=== PATIENT | female | born 1955 | race Caucasian/White ===

== ENCOUNTER 2017-12-10 19:15 | Emergency (ER) | payer BC ==
--- NOTE | 2017-12-10 20:13 | UC ---
Syncope/New Syncope HPI - HPI Summary HPI Summary: Patient arrives reporting 2 syncopal episodes that occurred this evening. States she was sitting eating dinner and feeling well when she went to answer the door. She suddenly felt very warm and was reportedly pale and passed out. She was assisted back to her kitchen and was standing up leaning against the stove when she suddenly passed out again. She states she hit her head on the stove and must have landed on her right knee because she has severe right knee pain. She does have a history of 3 previous knee surgeries. Of note she had blood work done around noon today but has eaten and been doing well since then until the syncopal episodes around 7 PM. Has no history of previous syncopal episodes. Admits she does not drink much water but drinks iced tea throughout the day. Denies any significant medical history. Currently has a slight headache and right knee pain but otherwise feels well. - History Of Current Complaint Chief Complaint: UCDizziness Stated Complaint: FAINTING SPELLS X2 Time Seen by Provider: 12/10/17 19:25 Hx Obtained From: Patient, Family/Batch Plant Operator - SISTER Onset/Duration: Sudden Onset Activity At Onset: At Rest Frequency: Episodes x___ - 2 Associated Head Trauma: Yes Pain Intensity: 2 Pain Scale Used: 0-10 Numeric Aggravating Factor(s): Nothing Associated Signs And Symptoms: Positive: Headache. Negative: AMS, Chest Pain, Dizzy, Head Trauma (Remote), Head Trauma (Recent), Palpitations, Seizure, Shortness Of Breath, Vomiting - Allergies/Home Medications Allergies/Adverse Reactions: Allergies Allergy/AdvReac Type Severity Reaction Status Date / Time MS Hydrocodone [Hydrocodone] Allergy Vomiting Verified 12/10/17 19:22 MS Penicillins [Penicillins] Allergy Hives Verified 12/10/17 19:22 Home Medications: Home Medications Digestive 8/L.acidoph/Pectin [Digestive Enzymes Tablet] 1 tab PO 12/10/17 [ History] Meloxicam 7.5 mg PO DAILY 12/10/17 [History Confirmed 12/10/17] SUMAtriptan TAB* [Imitrex TAB*] 25 mg PO SEE INSTRUCTIONS PRN 12/10/17 [History Confirmed 12/10/17] PMH/Surg Hx/FS Hx/Imm Hx Previously Healthy: Yes - Surgical History Surgical History: Yes Surgery Procedure, Year, and Place: right knee surgery. nodules removed from vocal cords. heel spur - Family History Known Family History: Positive: Hypertension - Social History Alcohol Use: None Substance Use Type: None Smoking Status (MU): Never Smoked Tobacco - Immunization History Most Recent Influenza Vaccination: 2014 Hx Tetanus, Diphtheria Vaccination: Yes Review of Systems Constitutional: Negative Respiratory: Negative Cardiovascular: Negative Gastrointestinal: Negative Genitourinary: Negative Musculoskeletal: Arthralgia Neurological: Headache All Other Systems Reviewed And Are Negative: Yes Physical Exam Triage Information Reviewed: Yes Appearance: Well-Appearing, No Pain Distress, Well-Nourished Vital Signs: Initial Vital Signs Temp 97.8 F 12/10/17 19:24 Pulse 69 12/10/17 19:24 Resp 18 12/10/17 19:24 BP 117/67 12/10/17 19:24 Pulse Ox 100 12/10/17 19:24 Vital Signs Reviewed: Yes Eyes: Positive: Conjunctiva Clear, Other: - PERRL, EOMI ENT: Positive: Hearing grossly normal, Pharynx normal, TMs normal Neck: Positive: Supple, Nontender, No Lymphadenopathy Respiratory Exam: Normal Cardiovascular Exam: Normal Abdomen Description: Positive: Nontender, Soft. Negative: CVA Tenderness (R), CVA Tenderness (L) Bowel Sounds: Positive: Present Musculoskeletal: Positive: ROM Limited @ - RIGHT KNEE, Edema @ - RIGHT KNEE, Other: - TTP RIGHT KNEE Neurological: Positive: Alert, Other: - CN II-XII GROSSLY INTACT BILATERALLY. RAPID ALTERNATING MOVEMENTS INTACT. NEG PRONATOR DRIFT. 5/5 STRENGTH. HEEL TO LUNA INTACT BILATERALLY. FINGER TO NOSE INTACT. Psychological: Positive: Age Appropriate Behavior Skin: Negative: rashes Diagnostics - EKG Cardiac Rate: NL - 66BPM Cardiac Rhythm: Sinus: Normal Ectopy: None ST Segment: Normal Syncope Course/Dx - Course Course Of Treatment: EKG UNREMARKABLE. ORTHOSTATIC VITAL SIGNS UNREMARKABLE. NEURO EXAM GROSSLY NORMAL. RECOMMEND TRANSFER TO ED FOR FURTHER EVALUATION. PT OFFERED TRANSPORT TO THE ED BY AMBULANCE BUT DECLINES. ADVISED THAT BY NOT TRAVELING IN A MONITORED SETTING SHE COULD BE RISKING WORSENING OF HER CONDITION THAT COULD POSE A THREAT TO HER LIFE, HEALTH AND MEDICAL SAFETY. SHE VERBALIZES UNDERSTANDING AND CONTINUES TO DECLINE AMBULANCE TRANSFER. - Differential Dx/Diagnosis Provider Diagnoses: SYNCOPE - Physician Notification/Consults Discussed Patient Care With: Pernell Doss MD - TO [facility] ED BY PRIVATE CAR Time Discussed With Above Provider: 20:05 Instructed by Provider To: MD Will See In ED Discharge - Sign-Out/Discharge Documenting (check all that apply): Patient Departure All imaging exams completed and their final reports reviewed: No Studies - Discharge Plan Condition: Stable Disposition: HOME Patient Education Materials: Syncope (ED) Referrals: Ashley Coy PA [Primary Care Provider] - If Needed Additional Instructions: GO DIRECTLY TO THE [facility] ED FROM HERE FOR FURTHER EVALUATION. YOU HAVE DECLINED TRANSFER TO THE ED BY AMBULANCE. BE ADVISED THAT BY NOT TRAVELING IN A MONITORED SETTING YOU COULD BE RISKING WORSENING OF YOUR CONDITION THAT COULD POSE A THREAT TO YOUR LIFE, HEALTH AND MEDICAL SAFETY. - Billing Disposition and Condition Condition: STABLE Disposition: Home
[2017-12-10 20:27] VITALS: BP 120/76
== END 2017-12-10 20:27 | disposition home or self-care (01) ==
LOC: UCCORT 19:15
DX: R55 Syncope and collapse (principal); Z88.0 Allergy status to penicillin; Z88.6 Allergy status to analgesic agent
CPT/HCPCS: 93005; 99212; G0463

== ENCOUNTER → 2017-12-10 21:16 | Emergency (ER) | payer BC ==
[2017-12-10 22:28] LABS: ABS Basophils 0.1 10^3/ul (0-0.2); ABS Eosinophils 0.1 10^3/ul (0-0.6); ABS Lymphocytes 0.9 10^3/ul (1.0-4.8); ABS Monocytes 0.6 10^3/ul (0-0.8); ABS Neutrophils 7.4 10^3/ul (1.5-7.7); ABS Nucleated RBC 0 10^3/ul; Eosinophil % 1.2 % (0-6); Hematocrit 40 % (35-47); Hemoglobin 13.5 g/dl (12.0-16.0); Lymphocyte % 9.8 % (25-47); Mean Corpuscular HGB Conc 34 g/dl (31-36); Mean Corpuscular Hemoglobin 31 pg (27-31); Mean Corpuscular Volume 91 fL (80-97); Mean Platelet Volume 8.6 um3 (7.4-10.4); Nucleated Red Blood Cells % 0; Platelet Count 242 10^3/ul (150-450); Red Blood Count 4.37 10^6/ul (4.00-5.40); Red Cell Distribution Width 13 % (10.5-15); White Blood Count 9.1 10^3/ul (3.5-10.8)
--- NOTE | 2017-12-11 00:42 | ED ---
Syncope/Near Syncope - HPI Summary HPI Summary: Pt is a 62 year old female presenting to the ED with a chief complaint of syncope. She was eating dinner in her living room, she spoke to her neighbor for 2-3 minutes at the door when the pt got very hot, but kept conversing, everything went dark, then passed out. It was not hot out and she was in her living room with a bathrobe on. Pt reports passing out again a little bit later , after about 5 seconds of rest and some ice on her neck. Upon standing up, she felt mildly weak, then while she stood at her stove she passed out again. According to a neighbor, she hit her head on the stove. She complains of knee pain, thinks that she has dislodged her knee replacement. Pt had a normal day, ran errands, washed her truck, got bloodwork done. Did not eat breakfast today because she didnt know if the bloodwork was a fasting blood draw. No nausea after first fall, just mildly confused because fall was unexpected. No trouble breathing, no cp, no current n/v. The pt does not drink lots of fluids. The pt s R knee pain is rated at a 8/9 out of 10. The pt has a hx of arthritis, knee replacements, and basal cell removal. The pt denies any respiratory or heart problems, as well as any smoking or drinking. - History Of Current Complaint Chief Complaint: EDSyncope Hx Obtained From: Patient Onset/Duration: Sudden Onset Timing: Intermittent Episode Lasting - minutes Context: Witnessed Activity At Onset: Other - standing and talking to neighbor Associated Head Trauma: No Associated Signs And Symptoms: Decreased Oral Intake - minimal food and drink - Allergies/Home Medications Allergies/Adverse Reactions: Allergies Allergy/AdvReac Type Severity Reaction Status Date / Time hydrocodone Allergy Vomiting Verified 12/10/17 21:24 Penicillins Allergy Hives Verified 12/10/17 21:24 PMH/Surg Hx/FS Hx/Imm Hx Previously Healthy: Yes Cardiovascular History: Denies: Hx Hypertension, Other Cardiovascular Problems/Disorders Respiratory History: Denies: Hx Lung Cancer, Other Respiratory Problems/Disorders Musculoskeletal History: Reports: Hx Arthritis - Surgical History Surgery Procedure, Year, and Place: right knee surgery. nodules removed from vocal cords. heel spur Infectious Disease History: No Infectious Disease History: Denies: Traveled Outside the [place] in Last 30 Days - Family History Known Family History: Positive: None, Hypertension - Social History Alcohol Use: None Substance Use Type: Reports: None Smoking Status (MU): Never Smoked Tobacco Review of Systems Negative: Fever Negative: Chest Pain Negative: Shortness Of Breath Negative: Vomiting, Nausea Positive: Myalgia - R knee pain Positive: Other - confusion upon waking up All Other Systems Reviewed And Are Negative: Yes Physical Exam - Summary Physical Exam Summary: Appearance: Well-appearing, Well-nourished, lying in bed comfortable Skin: Warm, dry, no obvious rash Eyes: sclera anicteric, no conjunctival pallor ENT: mucous membranes moist Neck: deferred Respiratory: No signs of respiratory distress Cardiovascular: Appears well perfused, pulses are nml Abdomen: deferred Musculoskeletal: R knee effusion, no signs of head trauma. Neurological: Awake and alert, mentation is normal, speech is fluent and appropriate Psychiatric: affect is normal, does not appear anxious or depressed Triage Information Reviewed: Yes Vital Signs On Initial Exam: Initial Vitals Temp Pulse Resp BP Pulse Ox 97.8 F 73 18 100/63 100 12/10/17 21:20 12/10/17 21:20 12/10/17 21:20 12/10/17 21:20 12/10/17 21:20 Vital Signs Reviewed: Yes Diagnostics - Vital Signs Vital Signs Temp Pulse Resp BP Pulse Ox 12/10/17 23:23 97.9 F 69 18 104/73 99 12/10/17 21:20 97.8 F 73 18 100/63 100 - Laboratory Lab Results: Lab Results 12/10/17 12/10/17 12/10/17 Range/Units 22:19 22:19 22:19 WBC 9.1 (3.5-10.8) 10^3/ul RBC 4.37 (4.00-5.40) 10^6/ul Hgb 13.5 (12.0-16.0) g/dl Hct 40 (35-47) % MCV 91 (80-97) fL MCH 31 (27-31) pg MCHC 34 (31-36) g/dl RDW 13 (10.5-15) % Plt Count 242 (150-450) 10^3/ul MPV 8.6 (7.4-10.4) um3 Neut % (Auto) 81.4 (38-83) % Lymph % (Auto) 9.8 L (25-47) % [place] % (Auto) 6.7 (0-7) % Eos % (Auto) 1.2 (0-6) % Baso % (Auto) 0.9 (0-2) % Absolute Neuts (auto) 7.4 (1.5-7.7) 10^3/ul Absolute Lymphs (auto) 0.9 L (1.0-4.8) 10^3/ul Absolute Monos (auto) 0.6 (0-0.8) 10^3/ul Absolute Eos (auto) 0.1 (0-0.6) 10^3/ul Absolute Basos (auto) 0.1 (0-0.2) 10^3/ul Absolute Nucleated RBC 0 10^3/ul Nucleated RBC % 0 APTT 28.6 (26.0-36.3) seconds Sodium 141 (135-145) mmol/L Potassium 4.9 (3.5-5.0) mmol/L Chloride 106 (101-111) mmol/L Carbon Dioxide 31 (22-32) mmol/L Anion Gap 4 (2-11) mmol/L BUN 19 (6-24) mg/dL Creatinine 0.97 H (0.51-0.95) mg/dL Est GFR ( Amer) 70.2 (>60) Est GFR (Non-Af Amer) 58.0 (>60) BUN/Creatinine Ratio 19.6 (8-20) Glucose 115 H (70-100) mg/dL Lactic Acid (0.5-2.0) mmol/L Calcium 9.6 (8.6-10.3) mg/dL Magnesium 2.3 (1.9-2.7) mg/dL Total Bilirubin 0.40 (0.2-1.0) mg/dL AST 29 (13-39) U/L ALT 19 (7-52) U/L Alkaline Phosphatase 66 (34-104) U/L Troponin I 0.00 (<0.04) ng/mL B-Natriuretic Peptide ( - 100) pg/mL Total Protein 7.3 (6.4-8.9) g/dL Albumin 4.5 (3.2-5.2) g/dL Globulin 2.8 (2-4) g/dL Albumin/Globulin Ratio 1.6 (1-3) TSH 6.98 H (0.34-5.60) mcIU/mL 12/10/17 12/10/17 Range/Units 22:19 22:19 WBC (3.5-10.8) 10^3/ul RBC (4.00-5.40) 10^6/ul Hgb (12.0-16.0) g/dl Hct (35-47) % MCV (80-97) fL MCH (27-31) pg MCHC (31-36) g/dl RDW (10.5-15) % Plt Count (150-450) 10^3/ul MPV (7.4-10.4) um3 Neut % (Auto) (38-83) % Lymph % (Auto) (25-47) % [place] % (Auto) (0-7) % Eos % (Auto) (0-6) % Baso % (Auto) (0-2) % Absolute Neuts (auto) (1.5-7.7) 10^3/ul Absolute Lymphs (auto) (1.0-4.8) 10^3/ul Absolute Monos (auto) (0-0.8) 10^3/ul Absolute Eos (auto) (0-0.6) 10^3/ul Absolute Basos (auto) (0-0.2) 10^3/ul Absolute Nucleated RBC 10^3/ul Nucleated RBC % APTT (26.0-36.3) seconds Sodium (135-145) mmol/L Potassium (3.5-5.0) mmol/L Chloride (101-111) mmol/L Carbon Dioxide (22-32) mmol/L Anion Gap (2-11) mmol/L BUN (6-24) mg/dL Creatinine (0.51-0.95) mg/dL Est GFR ( Amer) (>60) Est GFR (Non-Af Amer) (>60) BUN/Creatinine Ratio (8-20) Glucose (70-100) mg/dL Lactic Acid 1.4 (0.5-2.0) mmol/L Calcium (8.6-10.3) mg/dL Magnesium (1.9-2.7) mg/dL Total Bilirubin (0.2-1.0) mg/dL AST (13-39) U/L ALT (7-52) U/L Alkaline Phosphatase (34-104) U/L Troponin I (<0.04) ng/mL B-Natriuretic Peptide 30 ( - 100) pg/mL Total Protein (6.4-8.9) g/dL Albumin (3.2-5.2) g/dL Globulin (2-4) g/dL Albumin/Globulin Ratio (1-3) TSH (0.34-5.60) mcIU/mL Result Diagrams: 12/10/17 22:19 12/10/17 22:19 Lab Statement: Any lab studies that have been ordered have been reviewed, and results considered in the medical decision making process. - EKG 2220 Cardiac Rate: NL - 68 EKG Rhythm: Sinus Rhythm ST Segment: Normal Ectopy: None EKG Interpretation: This is a normal EKG. Course/Dx - Diagnoses Provider Diagnoses: Syncope Discharge - Discharge Plan Condition: Good Disposition: HOME Patient Education Materials: Syncope (ED) Referrals: Ashley Coy PA [Primary Care Provider] - 3 Days Additional Instructions: Return to the ED with any new or worsening symptoms. - Attestation Statements Document Initiated by Scribe: Yes Documenting Scribe: Yuliana Linares Provider For Whom Scribe is Documenting (Include Credential): Dwight Villatoro MD. Scribe Attestation: Yuliana Kraus, scribed for Dwight Villatoro MD. on 12/11/17 at 0629.
[2017-12-11 00:51] VITALS: BP 114/68
--- NOTE | 2017-12-11 07:45 | RAD ---
HISTORY: pain s/p injury COMPARISONS: None VIEWS: 4 , Frontal, lateral, axial, and oblique views of the right knee FINDINGS: BONE DENSITY: Normal. BONES: The patient is status post right knee arthroplasty. There is no hardware failure or osteolysis. JOINTS: The patient is status post right knee arthroplasty. ALIGNMENT: There is no dislocation. SOFT TISSUES: Unremarkable. OTHER FINDINGS: None. IMPRESSION: STATUS POST RIGHT KNEE ARTHROPLASTY. NO ACUTE OSSEOUS INJURY. IF SYMPTOMS PERSIST, RECOMMEND REPEAT IMAGING R0
--- NOTE | 2017-12-11 07:47 | RAD ---
HISTORY: syncope COMPARISONS: November 01, 2014 VIEWS: 4: Frontal dual-energy and lateral views of the chest. FINDINGS: CARDIOMEDIASTINAL SILHOUETTE: The cardiomediastinal silhouette is normal. YEIMY: The yeimy are normal. PLEURA: The costophrenic angles are sharp. No pleural abnormalities are noted. LUNG PARENCHYMA: There is hyperinflation with flattening of the diaphragm and expansion of the AP diameter of the chest. ABDOMEN: The upper abdomen is clear. There is no subphrenic gas. BONES AND SOFT TISSUES: There is postsurgical change to right shoulder. OTHER: None. IMPRESSION: HYPERINFLATION, CONSISTENT WITH COPD. NO ACTIVE CARDIOPULMONARY DISEASE. R2
== END | disposition home or self-care (01) ==
LOC: ED 21:16
DX: R55 Syncope and collapse (principal)
CPT/HCPCS: 36415; 71046; 80053; 83605; 83735; 83880; 84443; 84484; 85025; 85730; 93005; 99282

== ENCOUNTER 2018-04-08 07:03 | Emergency (ER) | payer BC ==
--- OUTSIDE RECORDS SUMMARY | 2018-04-08 07:11 | XMS REPORT | Continuity of Care Document ---
:1955 External Reference #:[id number] Author Name Ashley Coy PA Address [address] [place] [address] Care Team Providers Name Role Phone Ashley Coy PA Primary Care Physician Unavailable Payers Type Date Identification Numbers Payment Provider Subscriber Effective: Policy Number: [id number] / [facility]- Ppo Javed Lopez 2011 PayID: [id number] [address] [address] [place] [address] Advance Directives Description No Information Available Problems Date Description Provider Status Onset: 06/25/2011 Backache Gabriela Pineda FNP Active Onset: 06/25/2011 Osteoarthritis Gabriela Pineda FNP Active Onset: 06/25/2011 Gastroesophageal reflux disease Gabriela Pineda FNP Active Onset: 12/31/2017 Hypothyroidism Ashley Coy PA Active Onset: 12/31/2017 Postconcussion syndrome Ashley Coy PA Active Family History Date Family Member(s) Problem(s) Comments General Non-Hodgkin's Lymphoma General Arthritis General Asthma General Breast Cancer General Depression General Hypertension General Osteoporosis General Osteoarthritis General Atrial Fibrillation General Headache, Chronic General Migraine General Cancer Mother Anxiety Onset: (2006) Mother Arthritis Onset: (2008) Mother Kidney Disease Onset: (2006) Mother Osteoporosis Onset: (2008) Mother Stroke Onset: (2006) Mother Osteoarthritis Onset: (2008) Mother Atrial Fibrillation Onset: (2004) First Brother Anxiety Onset: (2004) First Brother Depression Social History Type Date Description Comments Sex Unknown Marital Status Legal Status: Never Lives With Alone 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 Hand Dominance Right-Handed Tobacco Use Reviewed: 11/07/15 Patient has never smoked Smoking Status Reviewed: 12/31/17 Patient has never smoked Allergies, Adverse Reactions, Alerts Date Description Reaction Status Severity Comments 06/25/2011 Penicillin severe hives Active Medications Medication Date Status Form Strength Qnty SIG Indications Ordering Provider Synthroid Active Tablets 25mcg 30tabs 1 by E03.9 Cristóbal 018 mouth Ponce every day sEdel Imitrex Active Tablets 100mg 9tabs 1/2-1 tab Cristóbal 012 by mouth Ponce at onset Edel beckman of [place] as needed Ranitidine 0 Active Tablets 150mg Unknown HCL 000 Naproxen Active Tablets 500mg Unknown 000 Meloxicam Hx Tablets 15mg 30tabs 1 by M79.671 Cristóbal 018 - mouth Ponce every day Edel beckman 018 with food Omeprazole Hx Capsules DR 20mg 30caps 1 by K21.9 Cristóbal 016 - mouth Ponce every day Edel beckman 016 Ranitidine Hx Tablets 150mg 60tabs one pill K21.9 Cristóbal HCL 016 - twice a Ponce day sEdel 016 Ranitidine Hx Tablets 150mg 60tabs one twice K21.9 Cristóbal HCL 016 - a day Ponce Edel beckman 016 Ranitidine Hx Tablets 300mg 30tabs take one 530.11 Cristóbal HCL 015 - tablet by Ponce mouth at sEdel 015 bedtime Naproxen 0 Hx Tablets 500mg 60tabs one pill Cristóbal 000 - twice a Ponce day with Edel beckman 018 food Immunizations CPT Code Status Date Vaccine Lot # [id number] Given 12/18/2017 Influenza Vac,Quad,Split=>3 Yrs 89158 Given 01/27/2015 Influenza Vac,Quad,Split=>3 Yrs 75820 Given 02/01/2013 Flu Triv Old Code 09746 Given 06/25/2011 Tdap Vaccine over 7 yrs old [id number] Given 06/08/2009 Swine flu administration 81625 Given 05/05/2007 Td- Toxoids Absorbed - Adult 17675 Given Unknown Flu Triv Old Code Vital Signs Date Vital Result Comment 03/23/2018 4:04pm Weight 130.00 lb BP Systolic 110 mmHg BP Diastolic 50 mmHg 12/30/2017 2:30pm Weight 131.00 lb 12/17/2017 1:49pm Weight 130.00 lb BP Systolic 110 mmHg BP Diastolic 50 mmHg 09/25/2017 3:26pm Weight 130.00 lb BP Systolic 110 mmHg BP Diastolic 60 mmHg Height 67 inches 5'7" Body Temperature 98.0 F Respiratory Rate 12 /min BMI (Body Mass Index) 20.4 kg/m2 07/09/2017 3:20pm Weight 131.00 lb 11/14/2016 2:45pm Weight 127.00 lb BP Systolic 118 mmHg BP Diastolic 50 mmHg Height 67 inches 5'7" Heart Rate 64 /min Body Temperature 98.7 F Respiratory Rate 12 /min BMI (Body Mass Index) 19.9 kg/m2 09/24/2016 3:32pm Weight 129.00 lb BP Systolic 118 mmHg BP Diastolic 70 mmHg Height 67 inches 5'7" Body Temperature 97.0 F Respiratory Rate 12 /min BMI (Body Mass Index) 20.2 kg/m2 01/31/2016 3:43pm Weight 130.00 lb 11/07/2015 3:38pm Weight 129.00 lb BP Systolic 108 mmHg BP Diastolic 76 mmHg 08/29/2015 2:06pm Weight 128.00 lb BP Systolic 110 mmHg BP Diastolic 70 mmHg 08/08/2015 3:35pm Weight 128.00 lb BP Systolic 110 mmHg BP Diastolic 70 mmHg Height 67 inches 5'7" Heart Rate 64 /min Body Temperature 98.0 F Respiratory Rate 12 /min BMI (Body Mass Index) 20.0 kg/m2 04/26/2015 2:49pm Weight 127.00 lb BP Systolic 112 mmHg BP Diastolic 67 mmHg 11/01/2014 3:10pm Weight 127.00 lb BP Systolic 108 mmHg BP Diastolic 70 mmHg Height 68 inches 5'8" Heart Rate 51 /min Body Temperature 97.0 F O2 % BldC Oximetry 98 % Respiratory Rate 14 /min BMI (Body Mass Index) 19.3 kg/m2 07/27/2014 10:37am Weight 123.00 lb BP Systolic 100 mmHg BP Diastolic 70 mmHg Height 66.6 inches 5'6.60" Heart Rate 64 /min Body Temperature 98.0 F Respiratory Rate 12 /min BMI (Body Mass Index) 19.5 kg/m2 07/07/2013 3:38pm Weight 130.00 lb BP Systolic 100 mmHg BP Diastolic 80 mmHg Height 63 inches 5'3" Heart Rate 70 /min Body Temperature 98.7 F Respiratory Rate 12 /min BMI (Body Mass Index) 23.0 kg/m2 06/01/2013 3:35pm Weight 130.00 lb BP Systolic 101 mmHg BP Diastolic 80 mmHg Height 63 inches 5'3" Heart Rate 70 /min Body Temperature 98.4 F Respiratory Rate 12 /min BMI (Body Mass Index) 23.0 kg/m2 08/05/2012 3:14pm Weight 131.00 lb BP Systolic 101 mmHg BP Diastolic 80 mmHg 07/01/2012 4:20pm Weight 132.00 lb BP Systolic 110 mmHg BP Diastolic 76 mmHg Height 68 inches 5'8" Heart Rate 60 /min Body Temperature 97.9 F Respiratory Rate 16 /min BMI (Body Mass Index) 20.1 kg/m2 06/25/2011 3:57pm Weight 136.00 lb BP Systolic 110 mmHg BP Diastolic 70 mmHg Height 67 inches 5'7" Heart Rate 86 /min Body Temperature 97.4 F Respiratory Rate 12 /min BMI (Body Mass Index) 21.3 kg/m2 Results Test Date Facility Test Result H/L Range Note Basic Metabolic Panel 02/09/2018 [facility] Glucose 100 mg/dL N 74- 106 0 [phone] BUN 24 mg/dL High 7-18 Creatinine 0.9 mg/dL N 0.6-1.3 Glom Filtration Rate, Estimate >60 mL/min >60 If >60 mL/min >60 2 BUN/Creat 26.6 ratio Sodium 141 mmol/L N 136-145 Potassium 4.3 mmol/L N 3.5-5.1 Chloride 105 mmol/L N 98-107 Carbon Dioxide 29 mmol/L N 21-32 Anion Gap 7 mEq/L Low 8-16 Calcium 9.6 mg/dL N 8.5-10.1 Laboratory 02/09/2018 [facility] Thyroid Stim 2.40 N 0.30-4.20 test finding [phone] Hormone uIU/mL Hemoglobin A1c 02/09/2018 [facility] Glycohemoglobin 5.2 % N 4.2- 6.3 3 (Glyco HGB) [phone] (A1c) eAG 103 mg/dL CBC [facility] [facility] White Blood 9.1 10^3/uL N 3.5-10.8 [phone] Count Red Blood Count 4.37 10^6/uL N 4.00-5.40 Hemoglobin 13.5 g/dL N 12.0-16.0 Hematocrit 40 % N 35-47 Mean Corpuscular Volume 91 fL N 80-97 Mean Corpuscular Hemoglobin 31 pg N 27-31 Mean Corpuscular HGB Conc 34 g/dL N 31-36 Red Cell Distribution Width 13 % N 10.5-15 Platelet Count 242 10^3/uL N 150-450 Mean Platelet Volume 8.6 um3 N 7.4-10.4 Abs Neutrophils 7.4 10^3/uL N 1.5-7.7 Abs Lymphocytes 0.9 10^3/uL Low 1.0-4.8 Abs Monocytes 0.6 10^3/uL N 0-0.8 Abs Eosinophils 0.1 10^3/uL N 0-0.6 Abs Basophils 0.1 10^3/uL N 0-0.2 Abs Nucleated RBC 0 10^3/uL Granulocyte % 81.4 % N 38-83 Lymphocyte % 9.8 % Low 25-47 Monocyte % 6.7 % N 0-7 Eosinophil % 1.2 % N 0-6 Basophil % 0.9 % N 0-2 Nucleated Red Blood Cells % 0 [facility] test [facility] [facility] Activated 28.6 seconds N 26.0-36.3 finding [phone] Partial Thrombo Time Lactic Acid 1.4 mmol/L N 0.5-2.0 4 B Type Natriuretic Peptide 30 pg/mL 5 Comp Metabolic Panel 12/10/[address] [facility] [address] [address] Sodium 141 mmol/L N 135-145 [phone] Chloride 106 mmol/L N 101-111 Co2 Carbon Dioxide 31 mmol/L N 22-32 Glucose 115 mg/dL High 70-100 Blood Urea Nitrogen 19 mg/dL N 6-24 Creatinine 0.97 mg/dL High 0.51-0.95 BUN/Creatinine Ratio 19.6 N 8-20 Calcium 9.6 mg/dL N 8.6-10.3 Total Protein 7.3 g/dL N 6.4-8.9 Albumin 4.5 g/dL N 3.2-5.2 Globulin 2.8 g/dL N 2-4 Albumin/Globulin Ratio 1.6 N 1-3 Total Bilirubin 0.40 mg/dL N 0.2-1.0 Alkaline Phosphatase 66 U/L N 34-104 Alt 19 U/L N 7-52 Egfr Non- 58.0 >60 Egfr 70.2 >60 6 Potassium 4.9 mmol/L N 3.5-5.0 Anion Gap 4 mmol/L N 2-11 Ast 29 U/L N 13-39 Laboratory test 12/10/2017 [facility] Troponin I 0.00 ng/mL <0.04 finding [phone] TSH (Thyroid Stim Horm) 6.98 mcIU/mL High 0.34-5.60 Magnesium 2.3 mg/dL N 1.9-2.7 Basic Metabolic Panel 12/10/2017 [facility] Glucose 85 mg/dL N 74- 106 7 [phone] BUN 15 mg/dL N 7-18 Creatinine 0.8 mg/dL N 0.6-1.3 Glom Filtration Rate, Estimate >60 mL/min >60 If >60 mL/min >60 8 BUN/Creat 18.7 ratio Sodium 140 mmol/L N 136-145 Potassium 4.4 mmol/L N 3.5-5.1 Chloride 104 mmol/L N 98-107 Carbon Dioxide 31 mmol/L N 21-32 Anion Gap 5 mEq/L Low 8-16 Calcium 9.3 mg/dL N 8.5-10.1 CBC Auto Diff 12/10/2017 [facility] White Blood Count 4.2 K/uL N 3.1-10.7 [phone] Red Blood Count 4.58 M/uL N 3.90-5.40 Hemoglobin 14.1 gm/dL N 11.6-15.8 Hematocrit 42.2 % N 36.0-46.1 Mean Cell Volume 92.1 fl N 80.9-99.0 Mean Corpuscular HGB 30.8 pg N 25.9-32.7 Mean Corpuscular HGB Conc 33.4 g/dL N 30.8-34.3 Platelet Count 240 K/uL N 155-360 Red Cell Distri Width SD 42.4 fl N 3-47 Red Cell Distri Width %CV 13.0 % N 11.7-14.4 Mean Platelet Volume 10.4 fL N 8.9-12.4 Neut% 57.1 % N 40.4-72.8 Lymph % 27.3 % N 20.0-42.0 Greer % 10.0 % N 4.3-13.2 Eo% 4.7 % N 0.0-6.6 Bas% 0.9 % N 0.0-1.1 Neut# 2.41 K/uL N 1.8-7.0 Lymph # 1.15 K/uL N 1.0-4.0 Greer # 0.42 K/uL N 0.3-0.9 Eos # 0.20 K/uL N 0.0-0.5 Baso # 0.04 K/uL N 0.0-0.1 Liver Function Panel 12/10/2017 [facility] Total Protein 7.9 g/dL N 6.4-8.2 [phone] Albumin 4.1 g/dL N 3.4-5.0 Globulin 3.8 g/dL N 1.9-4.3 Alb/Glob 1.1 ratio Bilirubin,Total 0.3 mg/dL N 0.2-1.0 Bilirubin,Direct < 0.1 mg/dL N 0.0-0.2 Bilirubin,Indirect 0.2 mg/dL N 0.0-0.9 Sgot/Ast 40 U/L High 15-37 SGPT/Alt 32 U/L N 12-78 Alkaline Phosphatase 68 U/L N 45-117 Xray 10/15/2017 [facility] Mammography, <pending> [address] [place] [address] [phone] LDL Cholesterol 09/26/2017 [facility] Cholesterol 204 mg/dL High < 200 9, 10 Profile [phone] Triglycerides 53 mg/dL <150 11 HDL Cholesterol 77 mg/dL >40 12 LDL-Cholesterol 116 mg/dL < 100 13 CBC Auto Diff 09/26/2017 [facility] White Blood Count 5.0 K/uL N 3.1-10.7 [phone] Red Blood Count 4.30 M/uL N 3.90-5.40 Hemoglobin 13.2 gm/dL N 11.6-15.8 Hematocrit 39.0 % N 36.0-46.1 Mean Cell Volume 90.7 fl N 80.9-99.0 Mean Corpuscular HGB 30.7 pg N 25.9-32.7 Mean Corpuscular HGB Conc 33.8 g/dL N 30.8-34.3 Platelet Count 249 K/uL N 155-360 Red Cell Distri Width SD 41.6 fl N 3-47 Red Cell Distri Width %CV 12.8 % N 11.7-14.4 Mean Platelet Volume 10.8 fL N 8.9-12.4 Neut% 50.9 % N 40.4-72.8 Lymph % 30.3 % N 20.0-42.0 Greer % 10.5 % N 4.3-13.2 Eo% 7.5 % High 0.0-6.6 Bas% 0.8 % N 0.0-1.1 Neut# 2.52 K/uL N 1.8-7.0 Lymph # 1.50 K/uL N 1.0-4.0 Greer # 0.52 K/uL N 0.3-0.9 Eos # 0.37 K/uL N 0.0-0.5 Baso # 0.04 K/uL N 0.0-0.1 Basic Metabolic Panel 09/26/2017 [facility] Glucose 76 mg/dL N 74- 106 [phone] BUN 21 mg/dL High 7-18 Creatinine 0.8 mg/dL N 0.6-1.3 Glom Filtration Rate, Estimate >60 mL/min >60 If >60 mL/min >60 14 BUN/Creat 26.2 ratio Sodium 138 mmol/L N 136-145 Potassium 3.7 mmol/L N 3.5-5.1 Chloride 102 mmol/L N 98-107 Carbon Dioxide 28 mmol/L N 21-32 Anion Gap 8 mEq/L N 8-16 Calcium 9.3 mg/dL N 8.5-10.1 Liver Function Tests 09/26/2017 [facility] Total Protein 7.1 g/dL N 6.4-8.2 [phone] Albumin 4.0 g/dL N 3.4-5.0 Globulin 3.1 g/dL N 1.9-4.3 Alb/Glob 1.3 ratio Bilirubin,Total 0.6 mg/dL N 0.2-1.0 Bilirubin,Direct 0.1 mg/dL N 0.0-0.2 Bilirubin,Indirect 0.5 mg/dL N 0.0-0.9 Sgot/Ast 26 U/L N 15-37 SGPT/Alt 21 U/L N 12-78 Alkaline Phosphatase 56 U/L N 45-117 Laboratory test 07/09/2017 [facility] Throat Culture SEE RESULT 15, 16 finding [phone] BELOW Xray 10/09/2016 [facility] bilateral <pending> mammogram Liver Function 09/25/2016 [facility] Total Protein 6.8 g/dL N 6.4- 8 17 Panel [phone] Albumin 3.5 g/dL N 3.4-5.0 Globulin 3.3 g/dL N 1.9-4.3 Alb/Glob 1.1 ratio Bilirubin,Total 0.2 mg/dL N 0.2-1.0 Bilirubin,Direct < 0.1 mg/dL N 0.0-0.2 Bilirubin,Indirect 0.1 mg/dL N 0.0-0.9 Sgot/Ast 22 U/L N 15-37 SGPT/Alt 21 U/L N 12-78 Alkaline Phosphatase 61 U/L N 45-117 Lipid Profile 09/25/2016 [facility] Cholesterol 214 mg/dL High < 200 18 (Trig/Chol/HDL) [phone] Triglycerides 49 mg/dL <150 19 HDL Cholesterol 86 mg/dL >40 20 LDL-Cholesterol 118 mg/dL < 100 21 CBC Auto Diff 09/25/2016 [facility] White Blood Count 4.2 K/uL N 3.1-10.7 [phone] Red Blood Count 4.12 M/uL N 3.90-5.40 Hemoglobin 12.9 gm/dL N 11.6-15.8 Hematocrit 38.5 % N 36.0-46.1 Mean Cell Volume 93.4 fl N 80.9-99.0 Mean Corpuscular HGB 31.3 pg N 25.9-32.7 Mean Corpuscular HGB Conc 33.5 g/dL N 30.8-34.3 Platelet Count 225 K/uL N 150-400 Red Cell Distri Width SD 44.0 fl N 3-47 Red Cell Distri Width %CV 13.2 % N 11.7-14.4 Mean Platelet Volume 10.6 fL N 8.9-12.4 Neut% 45.5 % N 40.4-72.8 Lymph % 31.7 % N 20.0-42.0 Greer % 10.8 % N 4.3-13.2 Eo% 10.8 % High 0.0-6.6 Bas% 1.2 % High 0.0-1.1 Neut# 1.90 K/uL N 1.8-7.0 Lymph # 1.32 K/uL N 1.0-4.0 Greer # 0.45 K/uL N 0.3-0.9 Eos # 0.45 K/uL N 0.0-0.5 Baso # 0.05 K/uL N 0.0-0.1 Basic Metabolic Panel 09/25/2016 [facility] Glucose 90 mg/dL N 74- 106 [phone] BUN 23 mg/dL High 7-18 Creatinine 0.9 mg/dL N 0.6-1.3 Glom Filtration Rate, Estimate >60 mL/min >60 If >60 mL/min >60 22 BUN/Creat 25.5 ratio Sodium 146 mmol/L High 136-145 Potassium 4.3 mmol/L N 3.5-5.1 Chloride 109 mmol/L High 98-107 Carbon Dioxide 29 mmol/L N 21-32 Anion Gap 8 mEq/L N 8-16 Calcium 8.7 mg/dL N 8.5-10.1 Laboratory test 09/29/2015 [facility] Esophageal Biopsy See Note 23 finding [phone] LDL Cholesterol 08/09/2015 [facility] Cholesterol 206 mg/dL High < 200 24 Profile [phone] Triglycerides 116 mg/dL <150 25 HDL Cholesterol 77 mg/dL >40 26 LDL-Cholesterol 106 mg/dL < 100 27 Liver Function Tests 08/09/2015 [facility] Total Protein 7.2 g/dL 6.4-8.2 [phone] Albumin 3.5 g/dL 3.4-5.0 Globulin 3.7 g/dL 1.9-4.3 Alb/Glob 0.9 ratio Bilirubin,Total 0.2 mg/dL 0.2-1.0 Bilirubin,Direct < 0.1 mg/dL 0.0-0.2 Bilirubin,Indirect 0.1 mg/dL 0.0-0.9 Sgot/Ast 23 U/L 15-37 SGPT/Alt 24 U/L 12-78 Alkaline Phosphatase 90 U/L 45-117 Laboratory test 08/09/2015 [facility] Vitamin 39.2 30.0-100.0 28 finding [phone] D,25-Hydroxy ng/mL Basic Metabolic 08/09/2015 [facility] Glucose 97 mg/dL 74-106 Panel [phone] BUN 20 mg/dL High 7-18 Creatinine 0.8 mg/dL 0.6-1.3 Glom Filtration Rate, Estimate >60 mL/min >60 If >60 mL/min >60 29 BUN/Creat 25.0 ratio Sodium 144 mmol/L 136-145 Potassium 4.1 mmol/L 3.5-5.1 Chloride 110 mmol/L High 98-107 Carbon Dioxide 29 mmol/L 21-32 Anion Gap 5 mEq/L Low 8-16 Calcium 9.4 mg/dL 8.5-10.1 Laboratory 07/15/2015 [facility] Rapid Strep Negative N Negative 30 test finding [phone] Molecular Xray 08/17/2014 [facility] bilateral <pending> mammogram and u/s per radiologist discretion Laboratory 07/27/2014 [facility] TSH Reflex FT4 2.27 uIU/mL 0.36- 3.74 31 test finding [phone] and/or FT3 Vitamin D,25-Hydroxy 41.5 ng/mL 30.0-100.0 32 Liver Function Tests 07/27/2014 [facility] Total Protein 7.7 g/dL 6.4-8.2 [phone] Albumin 4.1 g/dL 3.4-5.0 Globulin 3.6 g/dL 1.9-4.3 Alb/Glob 1.1 ratio Bilirubin,Total 0.3 mg/dL 0.2-1.0 Bilirubin,Direct < 0.1 mg/dL 0.0-0.2 Bilirubin,Indirect 0.2 mg/dL 0.0-0.9 Sgot/Ast 26 U/L 15-37 SGPT/Alt 20 U/L 12-78 Alkaline Phosphatase 73 U/L 45-117 LDL Cholesterol Profile 07/27/2014 [facility] Cholesterol 243 mg/dL < 200 33 [phone] Triglycerides 85 mg/dL < 150 34 HDL Cholesterol 97 mg/dL > 40 35 LDL-Cholesterol 129 mg/dL < 100 36 CBC W/Automated Diff 07/27/2014 [facility] White Blood 3.1 K/uL 3.1-10.7 [phone] Count Red Blood Count 4.58 M/uL 3.90-5.40 Hemoglobin 13.8 gm/dL 11.6-15.8 Hematocrit 41.5 % 36.0-46.1 Mean Cell Volume 90.6 fl 80.9-99.0 Mean Corpuscular HGB 30.1 pg 25.9-32.7 Mean Corpuscular HGB Conc 33.3 g/dL 30.8-34.3 Platelet Count 250 K/uL 155-360 Red Cell Distri Width SD 43.5 fl 3-47 Red Cell Distri Width %CV 13.4 % 11.7-14.4 Mean Platelet Volume 10.8 fL 8.9-12.4 Neut% 41.3 % 40.4-72.8 Lymph % 41.3 % 17.0-46.1 Greer % 11.9 % 4.3-13.2 Eo% 3.9 % 0.0-6.6 Bas% 1.6 % High 0.0-1.1 Neut# 1.28 K/uL 1.0-7.0 Lymph # 1.28 K/uL Low 1.8-7.0 Greer # 0.37 K/uL 0.3-0.9 Eos # 0.12 K/uL 0.0-0.5 Baso # 0.05 K/uL 0.0-0.1 Basic Metabolic Panel 07/27/2014 [facility] Glucose 83 mg/dL 74- 106 [phone] BUN 16 mg/dL 7-18 Creatinine 0.7 mg/dL 0.6-1.3 Glom Filtration Rate, Estimate >60 mL/min >60 If >60 mL/min >60 37 BUN/Creat 22.8 ratio Sodium 142 mmol/L 136-145 Potassium 4.0 mmol/L 3.5-5.1 Chloride 107 mmol/L 98-107 Carbon Dioxide 31 mmol/L 21-32 Anion Gap 4 mEq/L Low 8-16 Calcium 9.0 mg/dL 8.5-10.1 Laboratory test 07/27/2014 [facility] ThinPrep Pap: See Note 38 finding [phone] Cervix/Endocx Laboratory test 07/07/2013 [facility] ThinPrep Pap: See Note 39 finding [phone] Cervix/Endocx Laboratory test 06/02/2013 [facility] TSH Reflex FT4 4.42 0.49-4 40 finding [phone] and/or FT3 uIU/mL .67 Vitamin D,25-Hydroxy 46.9 ng/mL 30.0-100.0 41 LDL Cholesterol 06/02/2013 [facility] Cholesterol 209 mg/dL High 120-200 Profile [phone] Triglycerides 59 mg/dL 16-231 HDL Cholesterol 70 mg/dL 29-83 LDL-Cholesterol 127 mg/dL 62-185 Basic Metabolic Panel 06/02/2013 [facility] Glucose 89 mg/dL 76- 115 [phone] BUN 19 mg/dL 5-23 Creatinine 0.8 mg/dL 0.5-1.4 Glom Filtration Rate, Estimate >60 mL/min >60 If >60 mL/min >60 42 BUN/Creat 23.7 ratio Sodium 140 mmol/L 136-145 Potassium 4.0 mmol/L 3.5-5.1 Chloride 105 mmol/L 98-107 Carbon Dioxide 30 mEq/L High 18-29 Anion Gap 9 mEq/L 8-16 Calcium 8.9 mg/dL 8.5-10.1 CBC W/Automated Diff 06/02/2013 [facility] White Blood 3.6 K/uL 3.1-10.7 [phone] Count Red Blood Count 4.21 M/uL 3.90-5.40 Hemoglobin 13.0 gm/dL 11.6-15.8 Hematocrit 38.4 % 36.0-46.1 Mean Cell Volume 91.2 fl 80.9-99.0 Mean Corpuscular HGB 30.9 pg 25.9-32.7 Mean Corpuscular HGB Conc 33.9 g/dL 30.8-34.3 Platelet Count 274 K/uL 155-360 Red Cell Distri Width SD 41.9 fl 3-47 Red Cell Distri Width %CV 12.8 % 11.7-14.4 Mean Platelet Volume 10.7 fL 8.9-12.4 Neut% 46.2 % 40.4-72.8 Lymph % 35.9 % 17.0-46.1 Greer % 11.8 % 4.3-13.2 Eo% 5.0 % 0.0-6.6 Bas% 1.1 % 0.0-1.1 Neut# 1.65 K/uL 1.0-7.0 Lymph # 1.28 K/uL 0.8-3.4 Greer # 0.42 K/uL 0.3-0.9 Eos # 0.18 K/uL 0.0-0.5 Baso # 0.04 K/uL 0.0-0.1 Liver Function Tests 06/02/2013 [facility] Total Protein 6.5 g/dL 6.3-8.0 [phone] Albumin 3.6 g/dL 3.5-5.0 Globulin 2.9 g/dL 1.9-4.3 Alb/Glob 1.2 ratio Bilirubin,Total 0.3 mg/dL 0.2-1.2 Bilirubin,Direct < 0.1 mg/dL Low 0.1-0.4 Bilirubin,Indirect 0.2 mg/dL 0.0-0.9 Sgot/Ast 33 U/L 16-40 SGPT/Alt 32 U/L 30-65 Alkaline Phosphatase 84 U/L 50-136 Laboratory test 07/11/2012 [facility] Sedimentation Rate 15 mm/hr 0-30 43 finding [phone] Rheumatoid Factor Screen NEGATIVE Negative Antinuclear 07/11/2012 [facility] Antinuclear See patterns . 44 Antibodies, Ifa [phone] Antibodies, Ifa Speckled Pattern 1:80 . Note See Note 45 Laboratory test finding 07/11/2012 [facility] Uric Acid 2.4 mg/dL 2.1-7.4 46 [phone] C-Reactive Protein,Quant < 2.9 mg/L 0.0-4.9 47 Xray 07/06/2012 [facility] bone density test <pending> [address] [place], [place] [id number] [phone] Mammography, Bilateral <pending> CBC W/Automated Diff 07/02/2012 [facility] White Blood 3.9 K/uL 3.1-10.7 [phone] Count Red Blood Count 4.09 M/uL 3.90-5.40 Hemoglobin 12.6 gm/dL 11.6-15.8 Hematocrit 36.8 % 36.0-46.1 Mean Cell Volume 90.0 fl 80.9-99.0 Mean Corpuscular HGB 30.8 pg 25.9-32.7 Mean Corpuscular HGB Conc 34.2 g/dL 30.8-34.3 Platelet Count 292 K/uL 155-360 Red Cell Distri Width SD 40.9 fl 3-47 Red Cell Distri Width %CV 12.7 % 11.7-14.4 Mean Platelet Volume 10.4 fL 8.9-12.4 Neut% 53.7 % 40.4-72.8 Lymph % 33.2 % 17.0-46.1 Greer % 10.0 % 4.3-13.2 Eo% 2.6 % 0.0-6.6 Bas% 0.5 % 0.0-1.1 Neut# 2.10 K/uL 1.0-7.0 Lymph # 1.30 K/uL 0.8-3.4 Greer # 0.39 K/uL 0.3-0.9 Eos # 0.10 K/uL 0.0-0.5 Baso # 0.02 K/uL 0.0-0.1 LDL Cholesterol 07/02/2012 [facility] Cholesterol 240 mg/dL High 120-200 Profile [phone] Triglycerides 29 mg/dL 16-231 HDL Cholesterol 95 mg/dL High 29-83 LDL-Cholesterol 139 mg/dL 62-185 General Health 07/02/2012 [facility] Thyroid Stim 2.15 0.49-4.67 Panel/CBS [phone] Hormone uIU/mL Laboratory test 07/01/2012 [facility] ThinPrep Pap: See Note 48 finding [phone] Vagina + Cervix Laboratory test 06/26/2011 [facility] Glucose 93 mg/dL 76-115 49 finding [phone] LDL Cholesterol 06/26/2011 [facility] Cholesterol 242 mg/dL High 120-200 Profile [phone] Triglycerides 48 mg/dL 16-231 HDL Cholesterol 74 mg/dL 29-83 LDL-Cholesterol 158 mg/dL 62-185 Laboratory test 06/25/2011 [facility] ThinPrep Pap: See Note 50 finding [phone] Cervix/Endocx 1 E03.9,R25.561,R79.9 2 Note: Persistent reduction for 3 months or more in an eGFR <60 mL/min/1.73 m2 defines CKD. Patients with eGFR values >/=60 mL/min/1.73 m2 may also have CKD if evidence of persistent proteinuria is present. The original MDRD equation for estimated GFR is not valid for patients less than 18 years of age. Additional information may be found at www.kdoqi.org. 3 Elevated levels of HbA1c suggest the need for more aggressive treatment of glycemia. The [place] [employer] recommends that a primary goal of therapy should be a HbA1c of <7% and that physicians should re-evaluate the treatment regimen in patients with HbA1c values consistently >8%. 4 [facility] Severe Sepsis and Septic Shock Management Bundle Measure requires all lactic acids initially measuring >2.0 mmol/L be repeated. 5 >100 to <200 pg/mL: likely compensated congestive heart failure (CHF) 200 to 400 pg/mL: likely moderate CHF >400 pg/mL: likely moderate to severe CHF 6 Because ethnic data is not always readily available, this report includes an eGFR for both -Americans and non- Americans. The National Kidney Disease Education Program (NKDEP) does not endorse the use of the MDRD equation for patients that are not between the ages of 18 and 70, are , have extremes of body size, muscle mass, or nutritional status, or are non- or non-. According to the National Kidney Foundation, irrespective of diagnosis, the stage of the disease is based on the level of kidney function: Stage Description GFR(mL/min/1.73 m(2)) 1 Kidney damage with normal or decreased GFR 90 2 Kidney damage with mild decrease in GFR 60-89 3 Moderate decrease in GFR 30-59 4 Severe decrease in GFR 15-29 5 Kidney failure <15 (or dialysis) 7 M19.90 8 Note: Persistent reduction for 3 months or more in an eGFR <60 mL/min/1.73 m2 defines CKD. Patients with eGFR values >/=60 mL/min/1.73 m2 may also have CKD if evidence of persistent proteinuria is present. The original MDRD equation for estimated GFR is not valid for patients less than 18 years of age. Additional information may be found at www.kdoqi.org. 9 M72.2, Z00.01, Z13.228, Z13.1, Z13.220, M19.90 10 Reference Guidelines*: Desirable: ........... < 200 mg/dL Borderline High: ..... 200-239 mg/dL High: ................ >=240 mg/dL * The National Cholesterol Education Program (NCEP) 11 Reference Guidelines*: Normal: ............. < 150 mg/dL Borderline High: .... 150-199 mg/dL High: ............... 200-499 mg/dL Very High: .......... > 500 mg/dL * Source: National Cholesterol Education Program (NCEP) 12 Reference Guidelines*: Low HDL: ..... < 40 mg/dL Normal: ..... 40-60 mg/dL Desirable: ... > 60 mg/dL *The National Cholesterol Education Program(NCEP) 13 Reference Guidelines*: Optimal:........... <100 mg/dL Near Optimal....... 100-129 mg/dL Borderline High.... 130-159 mg/dL High............... 160-189 mg/dL Very High.......... >=190 mg/dL * Source: National Cholesterol Education Program (NCEP) 14 Note: Persistent reduction for 3 months or more in an eGFR <60 mL/min/1.73 m2 defines CKD. Patients with eGFR values >/=60 mL/min/1.73 m2 may also have CKD if evidence of persistent proteinuria is present. The original MDRD equation for estimated GFR is not valid for patients less than 18 years of age. Additional information may be found at www.kdoqi.org. 15 [id number] 16 SEE RESULT BELOW Name: JAVED LOPEZ : [address]: Ashley MORGAN Acct: [id number] Unit: [id number] AGE: 62 Location: [facility] Re07/09/17 SEX: F Status: REG REF SPEC: [id number] NIK: 07/09/17-[address] [facility] [address]: Ashley MORGAN REQ: [id number] RECD: 07/09/17 STATUS: COMP _ SOURCE: THROAT SPDESC: ORDERED: Throat Culture COMMENTS: [id number] Procedure Result Reported Site Throat Culture Final 07/11/17- 1655 ML Organism 1 NORMAL SANTI Quantity 3+ Throat cultures are clinically indicated to detect the presence of group A strep, arcanobacterium and yeast. In certain cases, predominating organisms will be reported. * ML - Main Lab . END OF REPORT DEPARTMENT OF PATHOLOGY, [address] [place] [address] Krzysztof Andino M.D. Director [facility] # [id number] 17 M25.511 18 Reference Guidelines*: Desirable: ........... < 200 mg/dL Borderline High: ..... 200-239 mg/dL High: ................ >=240 mg/dL * The National Cholesterol Education Program (NCEP) 19 Reference Guidelines*: Normal: ............. < 150 mg/dL Borderline High: .... 150-199 mg/dL High: ............... 200-499 mg/dL Very High: .......... > 500 mg/dL * Source: National Cholesterol Education Program (NCEP) 20 Reference Guidelines*: Low HDL: ..... < 40 mg/dL Normal: ..... 40-60 mg/dL Desirable: ... > 60 mg/dL *The National Cholesterol Education Program(NCEP) 21 Reference Guidelines*: Optimal:........... <100 mg/dL Near Optimal....... 100-129 mg/dL Borderline High.... 130-159 mg/dL High............... 160-189 mg/dL Very High.......... >=190 mg/dL * Source: National Cholesterol Education Program (NCEP) 22 Note: Persistent reduction for 3 months or more in an eGFR <60 mL/min/1.73 m2 defines CKD. Patients with eGFR values >/=60 mL/min/1.73 m2 may also have CKD if evidence of persistent proteinuria is present. The original MDRD equation for estimated GFR is not valid for patients less than 18 years of age. Additional information may be found at www.kdoqi.org. 23 OPERATION/PROCEDURE GI bleed, incontinence, GERD DIAGNOSIS: PART 1: "COLON, ASCENDING, BIOPSY": - HYPERPLASTIC POLYP. PART 2: "COLON, RANDOM, BIOPSY": - BENIGN COLONIC MUCOSA WITH NO SIGNIFICANT PATHOLOGIC ABNORMALITIES. - NO EVIDENCE OF MICROSCOPIC COLITIS. PART 3: "DUODENUM, BIOPSY": - BENIGN SMALL INTESTINAL MUCOSA WITH NO SIGNIFICANT PATHOLOGIC ABNORMALITIES. - NO EVIDENCE OF VILLOUS BLUNTING OR INCREASED EPITHELIAL LYMPHOCYTES. PART 4: "STOMACH, BIOPSY": - ANTRAL AND BODY-TYPE GASTRIC MUCOSA WITH REACTIVE CHEMICAL GASTROPATHY. PART 5: "ESOPHAGUS, BIOPSY": - SQUAMOUS AND COLUMNAR MUCOSA WITH CHRONIC INFLAMMATION. - NEGATIVE FOR INTESTINAL METAPLASIA AND DYSPLASIA. ELVIA/clf [id number] GROSS Received in formalin in five properly labeled containers with the patient's name and accession number. Part one is designated, "ASCENDING COLON POLYP". The specimen consists of multiple portions of cordero-white, rubbery soft tissue measuring 0.5 x 0.4 x 0.2 cm. in aggregate. Submitted entirely, one cassette. Part two is designated, "RANDOM COLON BIOPSIES". The specimen consists of multiple portions of cordero-white, rubbery soft tissue measuring 0.8 x 0.5 x 0.1 cm. in aggregate. Submitted entirely, one cassette. GROSS (Continued) Part three is designated, "DUODENAL BIOPSIES". The specimen consists of multiple portions of cordero-white, rubbery soft tissue measuring 0.6 x 0.5 x 0.2 cm. in aggregate. Submitted entirely, one cassette. Part four is designated, "STOMACH BIOPSIES". The specimen consists of multiple portions of cordero-white, rubbery soft tissue measuring 0.7 x 0.4 x 0.2 cm. in aggregate. Submitted entirely, one cassette. Part five is designated, "ESOPHAGEAL BIOPSIES". The specimen consists of multiple portions of cordero-white, rubbery soft tissue measuring 0.9 x 0.7 x 0.2 cm. in aggregate. Submitted entirely, one cassette. WV/clf REVIEW CODE CODE: I Signed Electronically signed Nakul FOSTER MD [id number] 24 Reference Guidelines*: Desirable: ........... < 200 mg/dL Borderline High: ..... 200-239 mg/dL High: ................ >=240 mg/dL * The National Cholesterol Education Program (NCEP) 25 Reference Guidelines*: Normal: ............. < 150 mg/dL Borderline High: .... 150-199 mg/dL High: ............... 200-499 mg/dL Very High: .......... > 500 mg/dL * Source: National Cholesterol Education Program (NCEP) 26 Reference Guidelines*: Low HDL: ..... < 40 mg/dL Normal: ..... 40-60 mg/dL Desirable: ... > 60 mg/dL *The National Cholesterol Education Program(NCEP) 27 Reference Guidelines*: Optimal:........... <100 mg/dL Near Optimal....... 100-129 mg/dL Borderline High.... 130-159 mg/dL High............... 160-189 mg/dL Very High.......... >=190 mg/dL * Source: National Cholesterol Education Program (NCEP) 28 Vitamin D deficiency has been defined by the [place] [employer] and an Endocrine Society practice guideline as a level of serum 25-OH vitamin D less than 20 ng/mL (1,2). The Endocrine Society went on to further define vitamin D insufficiency as a level between 21 and 29 ng/mL (2). 1. IOM ([place] [employer]). 2010. Dietary reference intakes for calcium and D. [place]: The National Academies Press. 2. Gamal MF, Mehrdad NC, Glenn MULLINS, et al. Evaluation, treatment, and prevention of vitamin D deficiency: an Endocrine Society clinical practice guideline. JCEM. 2010; 96(7):1911-30. Performed at: RN - [facility] [address] [id number] Storage Battery Inspector: Roro Chavarria MD, Phone: [phone] 29 Note: Persistent reduction for 3 months or more in an eGFR <60 mL/min/1.73 m2 defines CKD. Patients with eGFR values >/=60 mL/min/1.73 m2 may also have CKD if evidence of persistent proteinuria is present. The original MDRD equation for estimated GFR is not valid for patients less than 18 years of age. Additional information may be found at www.kdoqi.org. 30 Casing Soaker: [id number] COMFORT BABITA Due to the increased sensitivity of molecular testing, reflex cultures are no longer performed. 31 QUERY: Reflex add FT3? N QUERY: Reflex add FT4? Y 32 Vitamin D deficiency has been defined by the [place] [employer] and an Endocrine Society practice guideline as a level of serum 25-OH vitamin D less than 20 ng/mL (1,2). The Endocrine Society went on to further define vitamin D insufficiency as a level between 21 and 29 ng/mL (2). 1. IOM ([place] [employer]). 2010. Dietary reference intakes for calcium and D. [place]: The National Academies Press. 2. Gamal MF, Mehrdad NC, Glenn MULLINS, et al. Evaluation, treatment, and prevention of vitamin D deficiency: an Endocrine Society clinical practice guideline. JCEM. 2010; 96(7):1911-30. Performed at: RN - [facility] [address] [id number] Storage Battery Inspector: Roro Chavarria MD, Phone: [phone] 33 Reference Guidelines*: Desirable: ........... < 200 mg/dL Borderline High: ..... 200-239 mg/dL High: ................ >=240 mg/dL * The National Cholesterol Education Program (NCEP) 34 Reference Guidelines*: Normal: ............. < 150 mg/dL Borderline High: .... 150-199 mg/dL High: ............... 200-499 mg/dL Very High: .......... > 500 mg/dL * Source: National Cholesterol Education Program (NCEP) 35 Reference Guidelines*: Low HDL: ..... < 40 mg/dL Normal: ..... 40-60 mg/dL Desirable: ... > 60 mg/dL *The National Cholesterol Education Program(NCEP) 36 Reference Guidelines*: Optimal:........... <100 mg/dL Near Optimal....... 100-129 mg/dL Borderline High.... 130-159 mg/dL High............... 160-189 mg/dL Very High.......... >=190 mg/dL * Source: National Cholesterol Education Program (NCEP) 37 Note: Persistent reduction for 3 months or more in an eGFR <60 mL/min/1.73 m2 defines CKD. Patients with eGFR values >/=60 mL/min/1.73 m2 may also have CKD if evidence of persistent proteinuria is present. The original MDRD equation for estimated GFR is not valid for patients less than 18 years of age. Additional information may be found at www.kdoqi.org. 38 PAP: FINAL REPORT SPECIMEN ADEQUACY: SPECIMEN SATISFACTORY FOR INTERPRETATION INTERPRETATION: NEGATIVE FOR INTRAEPITHELIAL LESION OR MALIGNANCY COMMENT: ATROPHIC PATTERN THINPREP PREPARED PAP SLIDE # Prepared in the Cytology laboratory from the ThinPrep sample is 1 ThinPrep smear. PAP ACCESSI QUESTIONNAIRE 04/30 PERTINENT CLINICAL HISTORY FOR PAP (BUCKLE STRINGER) CYTOLOGY (Check all that apply): ? Post ? Menopause? Y LMP date: AGE 53 Last Pap: at [facility]? Y Abnormal Pap? N If Yes, date: Post Hysterectomy? Is cervix present? Y If patient had related surgical procedure: Related Therapy: Significant Clinical History: V72.31 DISCLAIMER: The Pap smear is a screening test and not a diagnostic procedure. False negative and false positive results can and do occur for a number of reasons. Regular screening provides an aid in detecting treatable cervical abnormalities, but should not be used as the only means for detecting cervical dysplasia and carcinoma. Signed Electronically signed RAFA LOPEZ MD 07/28/14 1320 39 CYTOLOGY SCREENER - BUCKLE STRINGER @ 06/01 Screened by: Thao Toscano [facility](ASCP) PAP: FINAL REPORT SPECIMEN ADEQUACY: SPECIMEN SATISFACTORY FOR INTERPRETATION INTERPRETATION: NEGATIVE FOR INTRAEPITHELIAL LESION OR MALIGNANCY COMMENT: THINPREP PREPARED PAP SLIDE # Prepared in the Cytology laboratory from the ThinPrep sample is 1 ThinPrep smear. PAP ACCESSI QUESTIONNAIRE 04/30 PERTINENT CLINICAL HISTORY FOR PAP (BUCKLE STRINGER) CYTOLOGY (Check all that apply): ? Post ? Menopause? Y LMP date: 2005 Last Pap: at [facility]? Y Abnormal Pap? N If Yes, date: Post Hysterectomy? Is cervix present? Y If patient had related surgical procedure: Related Therapy: Significant Clinical History: V72.31 DISCLAIMER: The Pap smear is a screening test and not a diagnostic procedure. False negative and false positive results can and do occur for a number of reasons. Regular screening provides an aid in detecting treatable cervical abnormalities, but should not be used as the only means for detecting cervical dysplasia and carcinoma. Signed Electronically signed THAO TOSCANO 07/08/13 1535 40 QUERY: Reflex add FT3? QUERY: Reflex add FT4? Y 41 Vitamin D deficiency has been defined by the [place] [employer] and an Endocrine Society practice guideline as a level of serum 25-OH vitamin D less than 20 ng/mL (1,2). The Endocrine Society went on to further define vitamin D insufficiency as a level between 21 and 29 ng/mL (2). 1. IOM ([place] [employer]). 2010. Dietary reference intakes for calcium and D. [place]: The National Academies Press. 2. Gamal MF, Mehrdad NC, Glenn MULLINS, et al. Evaluation, treatment, and prevention of vitamin D deficiency: an Endocrine Society clinical practice guideline. JCEM. 2010; 96(7):1911-30. Performed at: RN - [facility] [id number] Storage Battery Inspector: Roro Chavarria MD, Phone: [phone] 42 Note: Persistent reduction for 3 months or more in an eGFR <60 mL/min/1.73 m2 defines CKD. Patients with eGFR values >/=60 mL/min/1.73 m2 may also have CKD if evidence of persistent proteinuria is present. The original MDRD equation for estimated GFR is not valid for patients less than 18 years of age. Additional information may be found at www.kdoqi.org. 43 REPORT FAXED PER REQUEST- 07/11/12,(LAB.CBL) 44 Negative <1:80 Borderline 1:80 Positive >1:80 45 A positive STEPHY result may occur in healthy individuals or be associated with a variety of diseases. See interpre- tation below: Pattern Antigen Detected Suggested Disease Association Homogeneous DNA(ds,ss,), High titers - SLE (Smooth) Histone Speckled Sm, BRINELL TESTER, SCL-70, SLE,MCTD,Scleroderma,Sjogrens SS-A/SS-B Nucleolar SCL-70, PM-1/SCL High titers Scleroderma Poly- myositis/Scleroderma Overlap Centromere Centromere PSS w/Crest syndrome variable Performed at: [place] - [facility] [address] [id number] Storage Battery Inspector: Roro Chavarria MD, Phone: [phone] 46 REPORT FAXED PER REQUEST- 07/11/12,(LAB.TOW) 47 REPORT FAXED PER REQUEST- 07/11/12,(LAB.TOW) 48 CYTOLOGY SCREENER - BUCKLE STRINGER @ 06/01 Screened by: LANA Lebron(ASCP) PAP: FINAL REPORT SPECIMEN ADEQUACY: SPECIMEN UNSATISFACTORY FOR INTERPRETATION AIR-DRYING ARTIFACT <4ml OF SAMPLE REMAINS IN THE THINPREP VIAL INTERPRETATION: SPECIMEN UNSATISFACTORY FOR INTERPRETATION COMMENT: ATROPHIC PATTERN REPEAT PAP AFTER INTRAVAGINAL ESTROGEN THERAPY IF INDICATED THINPREP PREPARED PAP SLIDE # Prepared in the Cytology laboratory from the ThinPrep sample is 1 ThinPrep smear. PAP ACCESSI QUESTIONNAIRE 04/30 PERTINENT CLINICAL HISTORY FOR PAP (BUCKLE STRINGER) CYTOLOGY (Check all that apply): ? N Post ? N Menopause? N LMP date: Post Hysterectomy? Is cervix present? Y If patient had related surgical procedure: Related Therapy: Significant Clinical History: V72.31 DISCLAIMER: The Pap smear is a screening test and not a diagnostic procedure. False negative and false positive results can and do occur for a number of reasons. Regular screening provides an aid in detecting treatable cervical abnormalities, but should not be used as the only means for detecting cervical dysplasia and carcinoma. JENNIFER Ghosh MD 07/06/12 1555 49 QUERY: Is the Patient Fasting? Y 50 PAP: FINAL REPORT SPECIMEN ADEQUACY: SPECIMEN SATISFACTORY FOR INTERPRETATION <4ml OF SAMPLE REMAINS IN THE THINPREP VIAL INTERPRETATION: NEGATIVE FOR INTRAEPITHELIAL LESION OR MALIGNANCY COMMENT: ATROPHIC PATTERN THINPREP PREPARED PAP SLIDE # Prepared in the Cytology laboratory from the ThinPrep sample is 1 ThinPrep smear. PAP ACCESSI QUESTIONNAIRE 04/30 PERTINENT CLINICAL HISTORY FOR PAP (BUCKLE STRINGER) CYTOLOGY (Check all that apply): ? N Post ? N Menopause? LMP date: 2005 Last Pap: at [facility]? Abnormal Pap? N If Yes, date: If patient had related surgical procedure: Related Therapy: Significant Clinical History: SCREEN DISCLAIMER: The Pap smear is a screening test and not a diagnostic procedure. False negative and false positive results can and do occur for a number of reasons. Regular screening provides an aid in detecting treatable cervical abnormalities, but should not be used as the only means for detecting cervical dysplasia and carcinoma. LARRY Palomino 06/26/11 1108 Procedures Date Code Description Status 10/15/2017 [id number] Mammogram Completed 10/15/2017 [id number] Bone Mineral Density Test Completed 11/14/2016 00370 EKG Completed 09/29/2015 [id number] Colonoscopy Completed 08/08/2015 79475 Audiogram, Screen Only Pure Tone Completed 04/26/2015 91032 EKG Completed 07/27/2014 88168 Audiogram, Screen Only Pure Tone Completed 07/27/2014 30478 EKG Completed 07/07/2013 14981 Hearing Test Completed 06/01/2013 79391 EKG Completed 07/01/2012 08822 Color/Snellen Vision Completed 07/01/2012 65500 Hearing Test Completed 06/12/2010 90772 Color/Snellen Vision Completed 06/12/2010 43378 Hearing Test Completed 06/08/2009 06791 EKG Completed 12/01/2007 78328 EKG Completed 04/30/2007 71317 EKG Completed 05/12/2003 88071 Excisn Benign Lesion 1.1-2.0 CM Completed Encounters Type Date Location Provider Dx Diagnosis Office Visit 03/23/2018 Main Office Ashley Coy PA R13.10 Dysphagia, unspecified 3:45p E03.9 Hypothyroidism, unspecified R12 Heartburn Office Visit 12/30/2017 2:15p Main Office Ashley Coy, PA J06.9 Acute upper respiratory infection, unspecified E03.9 Hypothyroidism, unspecified M25.561 Pain in right knee M19.90 Unspecified osteoarthritis, unspecified site R79.9 Abnormal finding of blood chemistry, unspecified Office Visit 12/17/2017 1:45p Main Office Ashley oCy, F07.81 Postconcussional PA syndrome S80.01xA Contusion of right knee, initial encounter S00.03xA Contusion of scalp, initial encounter Office Visit 09/25/2017 3:30p Main Office Ashley Coy, PA Z00.01 Encounter for general adult medical exam w abnormal findings G43.909 Migraine, unsp, not intractable, without status migrainosus M79.671 Pain in right foot 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 Z12.31 Encntr screen mammogram for malignant neoplasm of breast M19.90 Unspecified osteoarthritis, unspecified site Z78.0 Asymptomatic menopausal state Office Visit 07/09/2017 3:15p Main Office Ashley Coy PA M79.671 Pain in right foot J06.9 Acute upper respiratory infection, unspecified J02.9 Acute pharyngitis, unspecified Office Visit 11/14/2016 2:30p Main Office Ashley Coy PA M25.511 Pain in right shoulder M75.121 Complete rotatr-cuff tear/ruptr of r shoulder, not trauma M15.0 Primary generalized (osteo)arthritis G43.909 Migraine, unsp, not intractable, without status migrainosus R00.1 Bradycardia, unspecified Z01.818 Encounter for other preprocedural examination Office Visit 09/24/2016 3:30p Main Office Ashley Coy PA Z00.01 Encounter for general adult medical exam w abnormal findings M25.511 Pain in right shoulder S46.291A Inj muscle, fascia and tendon of prt biceps, right arm, init G43.909 Migraine, unsp, not intractable, without status migrainosus Z12.31 Encntr screen mammogram for malignant neoplasm of breast M19.90 Unspecified osteoarthritis, unspecified site Office Visit 01/31/2016 3:45p Main Office Ashley Coy PA G43.909 Migraine , unsp, not intractable, without status migrainosus M19.90 Unspecified osteoarthritis, unspecified site S46.101A Unsp injury of musc/fasc/tend long hd bicep, right arm, init Office Visit 11/07/2015 3:30p Main Office Ashley Coy, K21.9 Gastro- esophageal reflux PA disease without esophagitis G43.909 Migraine, unsp, not intractable, without status migrainosus M19.90 Unspecified osteoarthritis, unspecified site Office Visit 08/29/2015 2:00p Main Office Ashley Coy PA Z01.411 Encntr for drawer maker exam (general) (routine) w abnormal findings Office Visit 08/08/2015 3:30p Main Office Ashley Coy PA Z01.411 Encntr for drawer maker exam (general) (routine) w abnormal findings K21.9 Gastro-esophageal reflux disease without esophagitis G43.909 Migraine, unsp, not intractable, without status migrainosus H81.13 Benign paroxysmal vertigo, bilateral Z12.31 Encntr screen mammogram for malignant neoplasm of breast E78.5 Hyperlipidemia, unspecified Office Visit 05/17/2015 3:00p Main Office Ashley Coy, K21.9 Gastro- esophageal reflux PA disease without esophagitis K62.89 Other specified diseases of anus and rectum Office Visit 04/26/2015 3:00p Main Office Ashley Coy PA R07.89 Other chest pain K21.9 Gastro-esophageal reflux disease without esophagitis M19.90 Unspecified osteoarthritis, unspecified site H81.13 Benign paroxysmal vertigo, bilateral R00.1 Bradycardia, unspecified Office Visit 11/01/2014 3:00p Main Office Cristóbal Martino, 719.46 Pain Joint M.D. Lower Leg 346.80 Migraine Other W/O Intractable 272.4 Hyperlipidemia Other Unspec V72.84 Examination Preoperative Unspec Office Visit 07/27/2014 10:30a Main Office Ashley Coy PA V72.31 Routine Caustic Plant Worker Examination 627.3 Atrophic Vaginitis Postmenopausal 719.46 Pain Joint Lower Leg 719.45 Pain Joint Pelvic Region & Thigh 786.59 Pain Chest Other 530.11 Esophagitis Reflux V76.12 Screening Mammogram Malig Darren Other V49.81 Postmenopausal Status Asymptomatic (Age-Related,Natural) 346.80 Migraine Other W/O Intractable v76.41 Screening Malignant Neoplasm Rectum Office Visit 07/07/2013 3:30p Main Office Ashley Coy PA V72.31 Routine Caustic Plant Worker Examination V76.2 Screening Malignant Neoplasm Cervix V76.10 Screening For Malignant Neoplasm Breast 627.3 Atrophic Vaginitis Postmenopausal 346.10 Migraine Common W/O Intractable Office Visit 06/01/2013 2:30p Main Office Ashley Coy PA 346.00 Migraine Classical W/O Intractable 719.46 Pain Joint Lower Leg 366.10 Cataract Senile Unspec v72.83 Examination Preoperative Other Spec Office Visit 08/05/2012 3:20p Main Office Mirima, 795.08 Pap Smear Gabriela Bunn, Unsatisfactory PIPE AND BOILER COVERS SUPERVISOR 729.5 Pain In Limb 724.5 Backache Unspec Office Visit 07/01/2012 3:20p Main Office Miriam, 346.00 Migraine Classical Gabriela G., PIPE AND BOILER COVERS SUPERVISOR W/O Intractable 272.4 Hyperlipidemia Other Unspec 724.5 Backache Unspec V72.31 Routine Caustic Plant Worker Examination V70.0 Examination General Medical Routine AT Health Care Facility Office Visit 06/25/2011 3:20p Main Office Miriam, 272.4 Hyperlipidemia Other Gabriela G., Unspec PIPE AND BOILER COVERS SUPERVISOR 346.00 Migraine Classical W/O Intractable v72.31 Routine Caustic Plant Worker Examination 724.5 Backache Unspec V06.1 Zdtfdzkvly-Flitoav-Fqimxvrw Combined (DTaP) Office Visit 03/19/2011 10:30a Main Office Miriam, 465.9 URI Upper Gabrieal G., PIPE AND BOIL[employer]OVERS SUPERVISOR Respiratory Infections Acute Unspec Sites Office Visit 03/05/2011 9:50a Main Office Miriam, 716.46 Arthropathy Gabriela GFrench, PIPE AND BOILER [employer]OVERS SUPERVISOR Transient Lower Leg 724.2 Lumbago Office Visit 01/23/2011 2:30p Main Office Miriam, 891.0 Open Wound Knee Leg Gabriela Bunn, PIPE AND [employer]OVERS SUPERVISOR (Except Thigh) & Ankle W/O Complication 724.5 Backache Unspec 715.90 Osteoarthrosis Unspec Genlzd Or Localzd Site Unspec Office Visit 06/12/2010 8:50a Main Office [place], 346.00 Migraine Classical Gabriela G., PIPE AND [employer]ERS SUPERVISOR W/O Intractable V72.31 Routine Caustic Plant Worker Examination 724.5 Backache Unspec Office Visit 06/08/2009 Main Office Miriam, V04.81 Need For Prophylactic 9:30a Gabriela Bunn, Vaccination & [employer]OVERS SUPERVISOR Inoculation/Influenza V72.83 Examination Preoperative Other Spec 715.16 Osteoarthrosis Localized Prim Lower Leg 692.9 Dermatitis Unspec Cause Due To Spec Agents Other 427.89 Cardiac Dysrhythmia Other Office Visit 01/11/2009 10:00a Main Office Ashley Coy PA 465.9 URI Upper Respiratory Infections Acute Unspec Sites 466.0 Bronchitis Acute Office Visit 11/30/2008 4:10p Main Office Miriam, V72.31 Routine Caustic Plant Worker Gabriela G., PIPE [employer] SUPERVISOR Examination Office Visit 05/24/2008 3:20p Main Office Miriam, 719.45 Pain Joint Pelvic Gabriela Bunn, PIPE [employer] SUPERVISOR Region & Thigh 530.81 Esophageal Reflux Office Visit 12/01/2007 3:00p Main Office Miriam V72.83 Examination Gabriela Bunn, Preoperative Other PIPE [employer] BOILER COVERS SUPERVISOR Spec 715.15 Osteoarthrosis Localized Prim Pelvic & Thigh 719.45 Pain Joint Pelvic Region & Thigh Office Visit 09/03/2007 3:30p Main Office Miriam, 346.00 Migraine Classical Gabriela Bunn, W/O Intractable PIPE [employer]ERS SUPERVISOR Office Visit 04/30/2007 3:30p Main Office Miriam, V72.84 Examination Gabriela Bunn, Preoperative Unspec PIPE [employer]ILER [employer]OVERS SUPERVISOR 715.16 Osteoarthrosis Localized Prim Lower Leg Office Visit 04/27/2007 11:45a Main Office Ashley Coy PA 525.9 Teeth And Supporting Structures Disorders Unspec Office Visit 04/09/2007 3:30p Main Office Miriam, V72.31 Routine Caustic Plant Worker Gabriela Bunn, PIPE [employer]ERS SUPERVISOR Examination Office Visit 01/27/2007 3:30p Main Office Miriam, 346.90 Migraine Unspec Gabriela Bunn, PIPE [employer]IL[employer] COVERS SUPERVISOR W/O Intractable Plan of Treatment Future Appointment(s):04/10/2018 11:00 am - Ashley Coy PA at Main [id number] 9:00 am - Ashley Coy PA at Main [id number]/29/2018 3:30 pm - Ashley Coy PA at [id number] - Ashley Coy, [id number] Dysphagia, unspecifiedReferral:Aly Freeman MD, [id number] Hypothyroidism, [id number] Heartburn
[2018-04-08 07:19] VITALS: BP 120/85
--- NOTE | 2018-04-08 07:32 | UC ---
Throat Pain/Nasal Hipolito HPI - HPI Summary HPI Summary: 63-year-old woman comes to clinic today with a chief complaint of upper respiratory tract infection symptoms for greater than a week. She's had rhinorrhea and a cough. The rhinorrhea is yellow. She's also developed a frontal headache. She's tried saline nasal spray and ubct-dai-hddzyem medications without overall improvement. The [id number] medicines helped briefly and then she gets worse again. No recent fevers. No chest congestion at this time. - History of Current Complaint Chief Complaint: UCRespiratory Stated Complaint: COUGH,CONGESTION Time Seen by Provider: 04/08/18 07:20 Pain Intensity: 2 - Allergies/Home Medications Allergies/Adverse Reactions: Allergies Allergy/AdvReac Type Severity Reaction Status Date / Time hydrocodone Allergy Vomiting Verified 04/08/18 07:12 Penicillins Allergy Hives Verified 04/08/18 07:12 Home Medications: Home Medications Calcium Carb/Magnesium Oxid/D3 [Calcium/Magnesium/Vitamin] 1 tab PO DAILY [History Confirmed 04/08/18] Naproxen [Naprosyn 500 mg tab] 500 mg PO DAILY 04/08/18 [History Confirmed 04/08] PMH/Surg Hx/FS Hx/Imm Hx Previously Healthy: Yes Neurological History: Migraine - Surgical History Surgical History: Yes Surgery Procedure, Year, and Place: right knee surgery. nodules removed from vocal cords. heel spur. hernia. shoulder surgery. - Family History Known Family History: Positive: None, Hypertension - Social History Alcohol Use: None Substance Use Type: None Smoking Status (MU): Never Smoked Tobacco - Immunization History Most Recent Influenza Vaccination: 2014 Hx Tetanus, Diphtheria Vaccination: Yes Review of Systems All Other Systems Reviewed And Are Negative: Yes Constitutional: Positive: Negative Skin: Positive: Negative Eyes: Positive: Negative ENT: Positive: Sore Throat, Nasal Discharge, Sinus Congestion, Sinus Pain/ Tenderness Respiratory: Positive: Cough Cardiovascular: Positive: Negative Gastrointestinal: Positive: Negative Motor: Positive: Negative Neurovascular: Positive: Negative Musculoskeletal: Positive: Negative Neurological: Positive: Negative Psychological: Positive: Negative Is Patient Immunocompromised?: No Physical Exam Triage Information Reviewed: Yes Appearance: No Pain Distress, Well-Nourished, Ill-Appearing - mild Vital Signs: Initial Vital Signs Temp 98.3 F 04/08/18 07:15 Pulse 62 04/08/18 07:15 Resp 16 04/08/18 07:15 BP 120/85 04/08/18 07:15 Pulse Ox 100 04/08/18 07:15 Vital Signs Reviewed: Yes Eye Exam: Normal Eyes: Positive: Conjunctiva Clear ENT: Positive: Pharyngeal erythema, Nasal congestion, Nasal drainage, TMs normal Neck exam: Normal Neck: Positive: Supple, Nontender Respiratory: Positive: Lungs clear, Normal breath sounds, No respiratory distress Cardiovascular: Positive: RRR Musculoskeletal Exam: Normal Musculoskeletal: Positive: Strength Intact, ROM Intact Neurological Exam: Normal Neurological: Positive: Alert, Muscle Tone Normal Psychological Exam: Normal Psychological: Positive: Age Appropriate Behavior Skin Exam: Normal Throat Pain/Nasal Course/Dx - Course Course Of Treatment: DISCUSSED VIRAL VERSES BACTERIAL INFECTION AND THE ROLE OF ANTIBIOTICS. THE PATIENT WISHES TO BE ON ANTIBIOTIC AT THIS TIME. - Differential Dx/Diagnosis Provider Diagnosis: Sinusitis Discharge - Sign-Out/Discharge Documenting (check all that apply): Patient Departure All imaging exams completed and their final reports reviewed: No Studies - Discharge Plan Condition: Stable Disposition: HOME Prescriptions: Azithromycin 250 mg PO DAILY #4 tablet Fluticasone NASAL SPRAY 50MCG* [Flonase NASAL SPRAY 50MCG*] 2 spray BOTH NARES DAILY #1 btl Patient Education Materials: Sinusitis (ED) Referrals: Ashley Coy PA [Primary Care Provider] - Additional Instructions: FOLLOW UP WITH YOUR DOCTOR IF NOT COMPLETELY IMPROVED. GET RECHECKED FOR ANY WORSENING OF YOUR CONDITION OR QUESTIONS OR CONCERNS. - Billing Disposition and Condition Condition: STABLE Disposition: Home
[2018-04-08] MEDS ORDERED: Azithromycin TAB* 250 MG PO ONE (07:33)
== END 2018-04-08 07:42 | disposition home or self-care (01) ==
LOC: UCCORT 07:03
DX: J32.9 Chronic sinusitis, unspecified (principal); Z88.5 Allergy status to narcotic agent; Z88.0 Allergy status to penicillin
CPT/HCPCS: 99212; A9270-GY; G0463

== ENCOUNTER 2019-04-14 07:04 | Emergency (ER) | payer BC ==
[2019-04-14 07:12] VITALS: BP 113/71
[2019-04-14] MEDS ORDERED: Azithromycin TAB* 250 MG PO ONE ×2 (07:21)
--- NOTE | 2019-04-14 07:24 | UC ---
Throat Pain/Nasal Hipolito HPI - HPI Summary HPI Summary: 64-year-old woman comes in with a chief complaint of upper respiratory tract infection symptoms for 7 days. She got green rhinorrhea sinus pressure. She also has postnasal drip and a sore throat. No cough or chest congestion. She' s been using ublq-vqt-maitymu decongestants and also a saline nasal wash which to help some with the symptoms have overall she's getting worse. - History of Current Complaint Chief Complaint: UCRespiratory Stated Complaint: SINUSES Time Seen by Provider: 04/14/19 07:14 Pain Intensity: 8 - Allergies/Home Medications Allergies/Adverse Reactions: Allergies Allergy/AdvReac Type Severity Reaction Status Date / Time hydrocodone Allergy Vomiting Verified 04/14/19 07:08 Penicillins Allergy Hives Verified 04/14/19 07:08 Home Medications: Home Medications Levothyroxine TAB* [Synthroid TAB*] 25 mcg PO DAILY 04/14/19 [History Confirmed 04/14/19] PMH/Surg Hx/FS Hx/Imm Hx Previously Healthy: Yes Endocrine History: Hypothyroidism Neurological History: Migraine - Surgical History Surgical History: Yes Surgery Procedure, Year, and Place: right knee surgery. nodules removed from vocal cords. heel spur. hernia. shoulder surgery. - Family History Known Family History: Positive: None, Hypertension - Social History Alcohol Use: None Substance Use Type: None Smoking Status (MU): Never Smoked Tobacco - Immunization History Most Recent Influenza Vaccination: 2014 Hx Tetanus, Diphtheria Vaccination: Yes Review of Systems All Other Systems Reviewed And Are Negative: Yes Constitutional: Positive: Other - SEE HPI Skin: Positive: Negative Eyes: Positive: Negative ENT: Positive: Sore Throat, Nasal Discharge, Sinus Congestion, Sinus Pain/ Tenderness Respiratory: Positive: Negative Cardiovascular: Positive: Negative Gastrointestinal: Positive: Negative Motor: Positive: Negative Neurovascular: Positive: Negative Musculoskeletal: Positive: Negative Neurological: Positive: Negative Psychological: Positive: Negative Is Patient Immunocompromised?: No Physical Exam Triage Information Reviewed: Yes Appearance: No Pain Distress, Well-Nourished, Ill-Appearing - MILD Vital Signs: Initial Vital Signs Temp 97.1 F 04/14/19 07:09 Pulse 63 04/14/19 07:09 Resp 16 04/14/19 07:09 BP 113/71 04/14/19 07:09 Pulse Ox 100 04/14/19 07:09 Vital Signs Reviewed: Yes Eye Exam: Normal Eyes: Positive: Conjunctiva Clear ENT: Positive: Pharyngeal erythema, Nasal congestion, Nasal drainage, TMs normal Neck: Positive: Supple Respiratory: Positive: Lungs clear, Normal breath sounds, No respiratory distress Cardiovascular: Positive: RRR Musculoskeletal: Positive: Strength Intact, ROM Intact Neurological: Positive: Alert, Muscle Tone Normal Psychological: Positive: Age Appropriate Behavior Skin Exam: Normal Throat Pain/Nasal Course/Dx - Course Course Of Treatment: DISCUSSED VIRAL VERSES BACTERIAL INFECTIONS AND THE ROLE OF ANTIBIOTICS. THE PATIENT PREFERS TO BE ON ANTIBIOTICS AT THIS TIME. - Differential Dx/Diagnosis Provider Diagnosis: Sinusitis Discharge ED - Sign-Out/Discharge Documenting (check all that apply): Patient Departure All imaging exams completed and their final reports reviewed: No Studies - Discharge Plan Condition: Stable Disposition: HOME Prescriptions: Azithromycin 250 mg PO DAILY #3 tablet Patient Education Materials: Sinusitis (ED) Referrals: Ashley Coy PA [Primary Care Provider] - Additional Instructions: FOLLOW UP WITH YOUR DOCTOR IF NOT COMPLETELY IMPROVED. GET REEVALUATED SOONER IF NOT IMPROVING OR WORSE OR ANY QUESTIONS OR CONCERNS. - Billing Disposition and Condition Condition: STABLE Disposition: Home
== END 2019-04-14 07:32 | disposition home or self-care (01) ==
LOC: UCCORT 07:04
DX: J32.9 Chronic sinusitis, unspecified (principal); G43.909 Migraine, unspecified, not intractable, without status migrainosus; E03.9 Hypothyroidism, unspecified; Z79.890 Hormone replacement therapy; Z88.0 Allergy status to penicillin; Z88.5 Allergy status to narcotic agent
CPT/HCPCS: 99212; A9270-GY; G0463

== ENCOUNTER 2019-06-02 16:50 | Emergency (ER) | payer BC ==
[2019-06-02 18:23] VITALS: BP 111/68
--- NOTE | 2019-06-02 18:55 | UC ---
Respiratory Complaint HPI - HPI Summary HPI Summary: Pt presents with c/o chest congestion, productive cough with yellow/green mucous that began last evening and continued today. Pt also c/o large amount of PND that began last eveing and woke her from sleep. - History of Current Complaint Chief Complaint: UCRespiratory Stated Complaint: COUGH/CONGESTION Time Seen by Provider: 06/02/19 18:21 Hx Obtained From: Patient ?: No Onset/Duration: Sudden Onset, Still Present Timing: Constant Severity Initially: Mild Severity Currently: Moderate Pain Intensity: 8 Character: Cough: Productive - green/yellow Aggravating Factors: Recumbent Position Alleviating Factors: Nothing Associated Signs And Symptoms: Positive: URI - Risk Factors Pulmonary Embolism Risk Factors: Negative Cardiac Risk Factors: Negative Pseudomonas Risk Factors: Negative Tuberculosis Risk Factors: Negative - Allergies/Home Medications Allergies/Adverse Reactions: Allergies Allergy/AdvReac Type Severity Reaction Status Date / Time hydrocodone Allergy Vomiting Verified 06/02/19 18:23 Penicillins Allergy Hives Verified 06/02/19 18:23 PMH/Surg Hx/FS Hx/Imm Hx Previously Healthy: Yes - Surgical History Surgical History: Yes Surgery Procedure, Year, and Place: right knee surgery. nodules removed from vocal cords. heel spur. hernia. shoulder surgery. - Family History Known Family History: Positive: None, Hypertension - Social History Occupation: Employed Full-time Lives: With Family Alcohol Use: None Substance Use Type: None Smoking Status (MU): Never Smoked Tobacco Have You Smoked in the Last Year: No - Immunization History Most Recent Influenza Vaccination: 2014 Hx Tetanus, Diphtheria Vaccination: Yes Review of Systems All Other Systems Reviewed And Are Negative: Yes Constitutional: Positive: Fatigue Skin: Positive: Negative Eyes: Positive: Negative ENT: Positive: Sinus Congestion Respiratory: Positive: Cough Cardiovascular: Positive: Negative Gastrointestinal: Positive: Negative Genitourinary: Positive: Negative Motor: Positive: Negative Neurovascular: Positive: Negative Musculoskeletal: Positive: Negative Neurological/Mental Status: Positive: Negative Psychological: Positive: Negative Is Patient Immunocompromised?: No Physical Exam Triage Information Reviewed: Yes Appearance: Well-Appearing Vital Signs: Initial Vital Signs Temp 97.2 F 06/02/19 18:16 Pulse 78 06/02/19 18:16 Resp 18 06/02/19 18:16 BP 111/68 06/02/19 18:16 Pulse Ox 100 06/02/19 18:16 Vital Signs Reviewed: Yes Eye Exam: Normal ENT: Positive: Nasal congestion Dental Exam: Normal Neck exam: Normal Respiratory Exam: Normal Respiratory: Positive: Lungs clear, Normal breath sounds, No respiratory distress, No accessory muscle use Cardiovascular Exam: Normal Musculoskeletal Exam: Normal Neurological Exam: Normal Psychological Exam: Normal Skin Exam: Normal Respiratory Course/Dx - Differential Dx/Diagnosis Differential Diagnosis/HQI/PQRI: Bronchitis, Exacerbation Of COPD, Influenza Provider Diagnosis: Viral syndrome, Post-nasal drip Discharge ED - Sign-Out/Discharge Documenting (check all that apply): Patient Departure All imaging exams completed and their final reports reviewed: No Studies - Discharge Plan Condition: Stable Disposition: HOME Prescriptions: Benzonatate CAP* [Tessalon 100 MG CAP*] 100 - 200 mg PO Q8H PRN #30 cap PRN Reason: Cough predniSONE 10 mg TAB [Deltasone 10 MG TAB*] 30 mg PO DAILY #18 tab Patient Education Materials: Viral Syndrome (ED) Referrals: Ashley Coy PA [Primary Care Provider] - If Needed - Billing Disposition and Condition Condition: STABLE Disposition: Home
== END 2019-06-02 18:53 | disposition home or self-care (01) ==
LOC: UCCORT 16:50
DX: B34.9 Viral infection, unspecified (principal); R09.82 Postnasal drip; R09.81 Nasal congestion; R53.83 Other fatigue; Z88.0 Allergy status to penicillin; Z88.5 Allergy status to narcotic agent
CPT/HCPCS: 99212; G0463